=== PATIENT | male | born 1945 | race Caucasian/White ===

== ENCOUNTER 2016-05-17 05:26 | Day surgery (SDC) | payer OTHER ==
[~2016-05-17] VITALS: Ht 177.8 cm; Wt 49.5 kg
[~2016-05-17 05:26] MED LIST: ALFUZOSIN HCL10 MG PO; ATIVAN0.5 MG PO; BISOPROLOL-HCT1 EAC2 PO; BISOPROLOL-HCT1 EACH PO; LITE COAT ASPI325 M1 PO; OMEPRAZOLE40 M1 PO; OPANA ER20 MG PO; OXYCODONE HCL30 MG PO; PROAIR RESPICL90 MCG IH; SPIRIVA1 INHALATI IH; VENTOLIN HFA18 GM IH; ZOLOFT50 MG PO
[2016-05-17 05:58] VITALS: BP 136/81
[2016-05-17 06:16] LABS: HEMATOCRIT 43.7 % (38.0-50.0); MCH 32.5 PG (29.0-34.0); MCHC 34.6 G/DL (30.0-36.0); MEAN PLAT.VOLUME 10.3 uM^3 (9.0-12.4); PLATELET COUNT 177 K/uL (156-360); RBC DIS.WIDTH-CV 14.2 % (11.8-14.6); RBC DIS.WIDTH-SD 48.3 % (39-53); RED BLOOD COUNT 4.65 M/uL (4.00-5.50); WHITE BLOOD COUNT 5.7 K/uL (4.1-10.2)
[2016-05-17 06:24] LABS: PROTHROMBIN TIME 9.8 (9.2-11.2)
[2016-05-17 06:36] LABS: ANION GAP 8 MEQ/L (2-14); CHLORIDE 105 MEQ/L (99-109); POTASSIUM 4.5 MEQ/L (3.7-5.4); SAMPLE HEMOLYSIS CHECK 0; SAMPLE ICTERIC CHECK 0; SAMPLE LIPEMIA CHECK 0; SODIUM 142 MEQ/L (136-147); TOTAL BILIRUBIN 0.6 MG/DL (0.0-1.0)
[2016-05-17 06:42] LABS: ALKALINE PHOSPHATASE 63 IU/L (3-129); GFR ESTIMATE (CALCULATED) > 59 mL/min/; GLUCOSE 106 mg/dL (70-99); UREA NITROGEN (BUN) 18 mg/dL (9-23)
[2016-05-17 10:47] LABS: TROP-I INTERPRETATION NEGATIVE; TROPONIN-I < 0.01 ng/mL (0.0-0.30)
[2016-05-17 12:40] VITALS: BP 113/65
[2016-05-17 15:25] VITALS: BP 120/72
[2016-05-17 20:02] VITALS: BP 105/59
[2016-05-17 23:28] VITALS: BP 138/67
[2016-05-18 03:19] VITALS: BP 128/66
[2016-05-18 08:05] VITALS: BP 114/60
== END 2016-05-18 10:23 | disposition home or self-care (01) ==
LOC: SDC 05:26 → 2SOUTH 09:43 → 2EAST 12:48 → SDC 14:10 → 2EAST 05-18 10:23 → SDC 05-21 08:28
PROVIDERS: Neurological Surgery
DX: M47.896 Other spondylosis, lumbar region (principal); M48.06 Spinal stenosis, lumbar region; M54.16 Radiculopathy, lumbar region; F17.200 Nicotine dependence, unspecified, uncomplicated; J44.9 Chronic obstructive pulmonary disease, unspecified; I10 Essential (primary) hypertension; I25.2 Old myocardial infarction
CPT/HCPCS: 72020; 76000; 80053; 84484; 85027; 85610; 85730; 93005; 94640; 94640 76; 94799; 99202; G0378; J0690; J1100; J1170; J2250; J2405; J2710; J2930; J3010; J3370; J3480; S0020